=== PATIENT | male | born 1965 | race Asian ===

== ENCOUNTER 2022-08-28 09:15 | Day surgery (SDC) | payer OTHER ==
[~2022-08-28] VITALS: Ht 177.8 cm; Wt 81.6 kg
[2022-08-28] MEDS ORDERED: fentaNYL citrate 0.05 MG/ML VIAL ONE (09:39)
[2022-08-28] MEDS ORDERED: diphenhydrAMINE 50 MG/ML VIAL ONE (09:39)
[2022-08-28] MEDS ORDERED: MIDAZOLAM 5 MG/5 ML VIAL ONE (09:39)
[2022-08-28] MEDS: MIDAZOLAM 2 MG/2 ML VIAL IVP ONE (09:43)
[2022-08-28] MEDS: fentaNYL citrate 0.05 MG/ML VIAL IVP ONE (09:44)
[2022-08-28] MEDS: LIDOCAINE 2% 100 MG/5 ML UJET TP ONE (09:52)
[2022-08-28] MEDS ORDERED: MIDAZOLAM 2 MG/2 ML VIAL ONE (09:59)
[2022-08-28] MEDS ORDERED: FENTANYL C 0.1 MG/HR PATCH TD SCH (12:15)
== END 2022-08-28 11:45 | disposition home or self-care (01) ==
LOC: MOR 09:15 → MMU 09:15 → MOR 11:45
PROVIDERS: ATTEND Internal Medicine Gastroenterology
DX: Z12.11 Encounter for screening for malignant neoplasm of colon (principal); K64.8 Other hemorrhoids; K29.70 Gastritis, unspecified, without bleeding; K30 Functional dyspepsia; Z86.010 Personal history of colon polyps; Z87.11 Personal history of peptic ulcer disease; Z79.899 Other long term (current) drug therapy; Z20.822 Contact with and (suspected) exposure to COVID-19
CPT/HCPCS: 88305; 88312; 88313; J1200; J2250; J3010